=== PATIENT | male | born 1985 | race Caucasian/White ===

== ENCOUNTER 2017-12-17 10:52 | Emergency (ER) | payer OTHER ==
[~2017-12-17] VITALS: Ht 185.4 cm; Wt 93.2 kg
[2017-12-17 10:59] VITALS: Ht 185.4 cm; Wt 93.2 kg
[2017-12-17 12:45] VITALS: BP 134/89
== END 2017-12-17 12:48 | disposition home or self-care (01) ==
LOC: D.ER 10:52
DX: S01.91XA Laceration without foreign body of unspecified part of head, initial encounter (principal); W16.522A Jumping or diving into swimming pool striking bottom causing other injury, initial encounter; Y93.11 Activity, swimming; Y92.019 Unspecified place in single-family (private) house as the place of occurrence of the external cause